=== PATIENT | male | born 1960 | race African-American/Black ===

== ENCOUNTER 2024-06-04 09:22 | Outpatient (AMB) | payer OTHER, SELFPAY ==
--- NOTE | 2024-06-04 09:24 | A.OFFPC_ITS ---
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 According to the patient, he never had primary care provider before. He sees someone at a mental health facility but is on no medications. Patient reports that he has some tremors. He can not recall for how long he has had it. He is able to function and do his activities of daily living. 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 Denies history of smoking or alcohol use. 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 1. Little interest or pleasure in doing things: not at all 2. Feeling down, depressed, or hopeless: nearly every day 3. Trouble falling or staying asleep, or sleeping too much: nearly every day 4. Feeling tired or having little energy: nearly every day 5. Poor appetite or overeating: not at all 6. Feeling bad about yourself - or that you are a failure or have let yourself or your family down: several days 7. Trouble concentrating on things, such as reading the newspaper or watching television: nearly every day 8. Moving or speaking so slowly that other people could have noticed. Or the opposite - being so fidgety or restless that you have been moving around a lot more than usual: several days 9. Thoughts that you would be better off or of hurting yourself in some way: not at all Total score: 14 Depression Screening Interpretation: Positive (CHD ) Depression Screening Follow-up: Existing condition and In treatment Depression Screening Done: Yes 29188 - PHQ-9 Billing: Yes Source: Developed by Drs. Marvin Ledesma, Renee Amaro, Esau Ross and colleagues, with an educational laurent from [employer]. Thrive Questionnaire Date Thrive assessed: 06/04/24 I am a: Patient What is your living situation today?: I have a steady place to live Within the past 12 months, did the food you bought not last and you didn't have the money to get more?: Never true Within the past 12 months, did you worry whether your food would run out before you got money to buy more?: Never true Do you have trouble paying for medicines?: No Do you have trouble getting transportation to medical appointments?: No Do you have trouble paying your heating and electricity bill?: No Do you have trouble taking care of your child, family member or friend?: No Do you have trouble with day-to-day activities such as bathing, preparing meals, shopping, managing finances, etc.?: No Are you currently unemployed and looking for a job?: No Are you interested in more education?: No Please select the resources that you would like help with: None Currently or been in a relationship where the following occur: I choose not to answer THRIVE Score: 0 AUDIT C Alcohol Use Questionnaire (AUDIT-C) 1. How often do you have a drink containing alcohol?: Never 2. How many drinks containing alcohol do you have on a typical day when you are drinking?: 1 or 2 3. How often do you have six or more drinks on one occasion?: Never Total Score: 0 KITTY-7 AMB Questionnaire KITTY-7 Date KITTY - 7 assessed: 06/04/24 Feeling nervous, anxious, or on edge: 3 = Nearly every day Not being able to stop or control worryin = Nearly every day Worrying too much about different things: 3 = Nearly every day Trouble relaxin = Nearly every day Being so restless that it is hard to sit still: 3 = Nearly every day Becoming easily annoyed or irritable: 3 = Nearly every day Feeling afraid as if something awful might happen: 3 = Nearly every day Total KITTY-7 score (0-4 normal; 5-9 mild; 10-14 moderate; 15-21 severe): 21 Source: Developed by Drs. Marvin Ledesma, Renee Amaro, Esau Ross and colleagues, with an educational laurent from [employer]. Physical exam (Primary Care) Vital Signs: Last Vital Signs Pulse 76 06/04/24 09:33 BP 128/80 06/04/24 09:33 Pulse Ox 99 06/04/24 09:33 Oxygen Delivery Method Room Air 06/04/24 09:33 Care Plan Goal for BP management: Blood pressure is on range. On no medications. BMI result Body Mass Index 17.8 Tobacco/Smoking Status: Tobacco use Status Tobacco use date assessed 06/04/24 06/04/24 09:27 Patient Tobacco Use Status Former Tobacco user 06/04/24 09:46 Tobacco use type Cigarette 06/04/24 09:46 PHQ-9: PHQ-9 Score PHQ-9: Total score 14 06/04/24 11:00 Depression Screening Interpretation: Positive (CHD ) Depression Screening Follow-up: Existing condition and In treatment Thrive Assessment: Date of Thrive Assessment Date Thrive assessed 06/04/24 06/04/24 09:27 Currently or been in a relationship where the following occur: I choose not to answer Const General: cooperative and healthy appearing Nutritional Appearance: well nourished Orientation/consciousness: patient oriented x3 Limitations: no limitations HENMT Head: Yes normal to inspection Eyes General: appearance normal, both eyes and all related structures Neck Neck: Yes normal visual inspection Chest Chest palpation & inspection: normal palpation of entire chest wall Resp Effort & Inspection: normal respiratory effort Neuro Other: Tremors worsen on motion. Minimal tremors. Unable to do the tip of the finger to the nose test. Romberg negative. General: patient oriented x3 Assessment and Plan Assessment & Plan (1) Ataxia: Code(s): R27.0 - Ataxia, unspecified Plan: Soft cerebellar signs present. Blood work has been ordered. Patient has been encouraged to return to the office for a follow-up appointment. MRI and a neurology consult will be obtained if needed. Orders: Orders Complete Blood Count no Diff 06/04/24 R27.0 - Ataxia, unspecified Lipid Panel 06/04/24 R27.0 - Ataxia, unspecified Syphilis Screen 06/04/24 R27.0 - Ataxia, unspecified Basic Metabolic Panel 06/04/24 R27.0 - Ataxia, unspecified Erythrocyte Sedimentation Rate 06/04/24 R27.0 - Ataxia, unspecified Liver Panel 06/04/24 R27.0 - Ataxia, unspecified Thyroid Stimulating Hormone 06/04/24 R27.0 - Ataxia, unspecified Coding Level of Care Code New Pt Level 4 (76780) Complex EM visit Add On G2211 Diagnoses Ataxia R27.0
[2024-06-04 09:33] VITALS: BP 128/80; PULSE 76; O2SAT 99; BMI 17.8
== END 2024-06-04 11:01 | disposition home or self-care (01) ==
PROVIDERS: PCP Internal Medicine; Visit Provider Internal Medicine
DX: R27.0 Ataxia, unspecified (principal)
CPT/HCPCS: 99204; G2211

== ENCOUNTER 2024-06-04 11:09 | Outpatient (REF) | payer OTHER, SELFPAY ==
[2024-06-04 12:10] LABS: Hematocrit 46.7 % (42.0-52.0); Hemoglobin 15.5 g/dl (14.0-18.0); Mean Corpuscular HGB Conc 33.2 g/dl (31.0-36.0); Mean Corpuscular Hemoglobin 30.3 pg (27.0-33.0); Mean Corpuscular Volume 91.4 fL (80.0-98.0); Mean Platelet Volume 9.5 fL (9.4-12.4); Platelet Count 277 X10*3/uL (160-400); Red Blood Count 5.11 X10*6/uL (4.60-5.80); White Blood Count 7.1 X10*3/uL (4.8-10.8)
[2024-06-04 12:46] LABS: Erythrocyte Sedimentation Rate 6 MM/HR (0-15)
[2024-06-04 12:59] LABS: Syphilis Screen Nonreactive (Nonreactive)
[2024-06-04 15:02] LABS: Alanine Aminotransferase 25 U/L (0-40); Albumin Level 4.7 g/dL (3.5-5.0); Alkaline Phosphatase 62 U/L (39-117); Anion Gap 13 (12-20); Aspartate Amino Transferase 29 U/L (5-37); Bilirubin Direct 0.1 mg/dL (0.0-0.5); Bilirubin Total 0.4 mg/dL (0.0-1.0); Blood Urea Nitrogen 21 mg/dL (9-16); Calcium 10.5 mg/dL (8.4-10.2); Carbon Dioxide 28 mmol/L (22-29); Chloride 103 mmol/L (96-108); Cholesterol 261 mg/dL (<200); Estimated Glomerular Filt Rate > 60; Glucose Random 108 mg/dL (60-115); HDL Cholesterol 90 mg/dL (>40); LDL Cholesterol Calculated 152 mg/dL (<100); Potassium 5.4 mmol/L (3.3-5.1); Sodium 139 mmol/L (135-145); Total Protein 7.8 g/dL (6.5-8.0); Triglycerides 96 mg/dL (<150)
[2024-06-04 15:09] LABS: Thyroid Stimulating Hormone 1.37 uIU/mL (0.32-4.0)
== END 2024-06-04 11:10 | disposition home or self-care (01) ==
LOC: HO.LAB 11:09
PROVIDERS: PCP Internal Medicine; Visit Provider Internal Medicine
DX: Z13.6 Encounter for screening for cardiovascular disorders (principal); R27.0 Ataxia, unspecified
CPT/HCPCS: 36415; 80048; 80061; 80076; 84443; 85027; 85652; 86780